=== PATIENT | male | born 1945 | race Caucasian/White ===

== ENCOUNTER 2021-05-15 14:50 | Emergency (ER) | payer OTHER ==
[~2021-05-15] VITALS: Ht 177.8 cm; Wt 109.3 kg
[2021-05-15 16:28] LABS: HEMATOCRIT 34.2 % (42.0-52.0); MCH 29.8 pg (26.0-34.0); MCHC 32.2 g/dL (28.0-37.0); MCV 92.7 fL (80.0-100.0); MPV 9.4 fl. (7.2-11.1); RBC 3.69 mil/uL (4.50-6.00); RDW-CV 16.1 % (10.5-14.5); WBC 4.5 thou/uL (4.0-11.0)
[2021-05-15 16:38] LABS: URINE BILIRUBIN NEGATIVE (Negative); URINE BLOOD NEGATIVE (Negative); URINE CLARITY CLEAR; URINE COLOR YELLOW; URINE GLUCOSE-RANDOM NEGATIVE (Negative); URINE KETONES NEGATIVE (Negative); URINE LEUKOCYTES-REFLEX NEGATIVE (Negative); URINE NITRITE-REFLEX NEGATIVE (Negative); URINE PROTEIN NEGATIVE (Negative); URINE SPECIFIC GRAVITY 1.025 (1.005-1.030)
[2021-05-15 17:12] LABS: CALCIUM 8.9 mg/dL (8.5-10.1); CREATININE 1.6 mg/dL (0.6-1.3)
[2021-05-15 17:16] LABS: ALBUMIN 3.4 g/dL (3.4-5.0); TOTAL BILIRUBIN 0.5 mg/dL (<0.1-1.0); TOTAL PROTEIN 6.2 g/dL (6.4-8.2)
[2021-05-15] MEDS ORDERED: BUPROPION HCL150 M1 PO (17:47)
[2021-05-15] MEDS ORDERED: DHIVY 25-100 M1 EACH PO (17:48)
[2021-05-15] MEDS ORDERED: PLAVIX 75 MG TA75 MG PO (17:48)
[2021-05-15] MEDS ORDERED: NEURONTIN100 MG PO (17:49)
[2021-05-15] MEDS ORDERED: FENOFIBRATE160 MG PO (17:49)
[2021-05-15] MEDS ORDERED: DULOXETINE HCL30 MG PO (17:49)
[2021-05-15] MEDS ORDERED: NAMENDA 5 MG TAB5 M1 PO (17:50)
[2021-05-15] MEDS ORDERED: CRESTOR40 MG PO (17:51)
[2021-05-15] MEDS ORDERED: LOPRESSOR50 PO (17:51)
[2021-05-15] MEDS ORDERED: VITAMIN D21250 MCG PO (17:52)
[2021-05-15] MEDS ORDERED: HYDROCODON-ACE1 EAC5 PO (17:53)
[2021-05-15] MEDS ORDERED: ASPIRIN325 PO (17:53)
[2021-05-15] MEDS ORDERED: NIZORAL A-D125 ML TOP (17:54)
[2021-05-15] MEDS ORDERED: MIRALAX119 GM PO (19:08)
[2021-05-15 19:51] VITALS: BP 162/76
--- NOTE | 2021-05-17 13:12 | EKG ---
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: : 1945 Requested By: Kailyn Underwood Order Number: [id number] MD: Moris Pollard Measurements Intervals [place] Rate: 55 P: -35 AL: 239 QRS: -21 QRSD: 120 T: 49 QT: 434 QTc: 416 Interpretive Statements Sinus bradycardia atrial premature complexes Prolonged AL interval Minimal ST depression, lateral leads No previous ECG available for comparison Electronically Signed On 05-17-2021 13:12:20 ANALOG DEVICE DESIGNER by Moris Pollard [email or web address] <ELECTRONICALLY SIGNED> By: Moris Pollard MD, [facility] 05/17/21 1312 1621 162 Moris Pollard MD, [facility] /EPI
== END 2021-05-15 19:53 | disposition home or self-care (01) ==
LOC: M.ERS 14:50
PROVIDERS: Physician Assistant
DX: K59.00 Constipation, unspecified (principal); R55 Syncope and collapse; F32.9 Major depressive disorder, single episode, unspecified; I10 Essential (primary) hypertension; G20 Parkinson's disease; I25.10 Atherosclerotic heart disease of native coronary artery without angina pectoris; Z79.82 Long term (current) use of aspirin; Z79.899 Other long term (current) drug therapy; Z79.891 Long term (current) use of opiate analgesic